=== PATIENT | male | born 1975 | race Caucasian/White ===

== ENCOUNTER 2019-08-11 19:41 | Emergency (ER) | payer OTHER, BC ==
[~2019-08-11] VITALS: Ht 187 cm; Wt 86.1 kg
[2019-08-11] MEDS ORDERED: RX-CYCLOBENZAPRINE 10 MG (FLEXERIL) TAB PPK#3 PO STA (20:59)
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
[2019-08-11 21:14] VITALS: BP 125/77
== END 2019-08-11 21:16 | disposition home or self-care (01) ==
LOC: ER 19:46
DX: T14.8XXA Other injury of unspecified body region, initial encounter (principal); R40.2142 Coma scale, eyes open, spontaneous, at arrival to emergency department; R40.2252 Coma scale, best verbal response, oriented, at arrival to emergency department; R40.2362 Coma scale, best motor response, obeys commands, at arrival to emergency department; V59.40XA Driver of pick-up truck or van injured in collision with unspecified motor vehicles in traffic accident, initial encounter
CPT/HCPCS: 99283